=== PATIENT | female | born 1965 | race Caucasian/White ===

== ENCOUNTER 2016-09-15 18:31 | Emergency (ER) | payer SELFPAY ==
--- NOTE | 2016-09-15 19:17 | ED ORDER SUMMARY ---
..... Patient: THERESE AGUDELO OrderSheet [facility] VisitID: [id number] [place] [address] 51y, F Registration Date/Time: 09/15/2016 ORDER SHEET Weight: 72.5 kg (stated) Allergies: Codeine, NSAIDs, Tylenol GENERAL ORDERS: CBC w Diff Urgent (18:49 09/15/2016 JBoardley R.N. per protocol) (Ack 18:50 LMuller) (18:51 JBoardley R.N.) CMP Urgent (18:49 09/15/2016 JBoardley R.N. per protocol) (Ack 18:50 LMuller) (18:51 JBoardley R.N.) Amylase Urgent (18:49 09/15/2016 JBoardley R.N. per protocol) (Ack 18:50 LMuller) (18:51 JBoardley R.N.) Lipase Urgent (18:49 09/15/2016 JBoardley R.N. per protocol) (Ack 18:50 LMuller) (18:51 JBoardley R.N.) Pulse oximeter (18:50 09/15/2016 JBoardley R.N. per protocol) (18:50 JBoardley R.N.) UA-Culture if indicated Urgent (18:58 09/15/2016 HBivens A.R.N.P.) (Ack 19:03 LMuller) (Cancelled: Physician Order19:25 JBoardley R.N.) Urine Drug Screen Urgent (18:58 09/15/2016 HBivens A.R.N.P.) (Ack 19:03 LMuller) (Cancelled: Physician Order19:26 JBoardley R.N.) MEDICATION ORDERS: IV FLUIDS: Zofran IV 4 mg (NOW) (18:49 09/15/2016 JBoardley R.N. per protocol) (18:50 JBoardley R.N.) IV NS : initial bolus none -, then 1000 mL/hr for X1 (NOW); Routine (18:49 09/15/2016 JBoardley R.N. per protocol) (18:50 Kole Amaya) ORDER SHEET NOTES: [Electronically signed by Niko Garnett R.N. (19:27 09/15/2016)] [Electronically signed by Toyin Ross (19:46 09/15/2016)] [Electronically locked/signed by Niko Garnett R.N. (:27 09/15/2016)]
--- NOTE | 2016-09-15 19:17 | ED NURSING NOTES ---
Clinical Report - Nurses [facility] [address] [place] [address] 09/15/2016 18:31 [id number] Triage time 18:38 Sep 15 2016. Acuity: LEVEL 5. Chief Complaint: "FLU". 18:44 09/15/16. 18:44 09/15/16. SEPSIS SCREEN: Sepsis Screen. Negative (no infection suspected/documented). ODELL COMA SCORE: Odell Coma Scale: 15- eyes open spontaneously (4); best verbal response- oriented x 4 (5); best motor response- obeys commands (6). --18:44 Ruthy Robb R.N. 18:37 09/15/16. BP: 133/73 (regular adult cuff) taken on the right arm, while lying. HR: 113. RR: 20. O2 saturation: 98% on room air. Temp: 98.3 F. Pain level now: 05/17. --18:44 Ruthy Robb R.N. Acuity: LEVEL 3. --19:16 Niko Garnett R.N. Weight: 72.5 kg stated. Height/Length: 64 inches Per Patient. BMI: 27.5. --18:40 Ruthy Robb R.N. Medications Ibuprofen Oral 800 mg, 3x a day, last dose 2100. --18:39 Ruthy Robb R.N. Allergies Codeine. NSAIDs. Tylenol. --18:39 Ruthy Robb R.N. History Arrived by private vehicle. Historian: patient. Accompanied by family. 18:44 09/15/16. Symptoms still present (3 AM). ( Patient complains of nausea, vomiting, and diarrhea since 3AM this morning, she thinks she ate something bad). She has had vomiting and diarrhea. PAST MEDICAL HX: Last normal menstrual period- years 1 hasnt had menses for one year. Immunizations not up to date. SOCIAL HX: Current every day light tobacco smoker- less than 1/2 a pack per day. No alcohol use or drug use. No known contact with a sick individual. ABUSE ASSESSMENT: No report of abuse. FALL RISK ASSESSMENT: Fall risk assessment completed. No fall risk identified. NUTRITIONAL RISK ASSESSMENT: The nutritional risk assessment revealed no deficiencies. FUNCTIONAL ASSESSMENT: Functional assessment: no impairments noted. LEARNING NEEDS ASSESSMENT: The learning needs assessment revealed no barriers. SKIN INTEGRITY ASSESSMENT: Skin integrity risk assessment completed. No skin integrity risk identified. --18:44 Ruthy Robb R.N. PROBLEMS: Folliculitis. Lymphadenitis. Otitis Media. Dental Pain. Bartholin's Abscess. Labial cyst. Cellulitis. LNMP - Last Normal Menstrual Period. Abscess. Fx bilateral ankles. Infection in vaginal area. --18:40 Ruthy Robb R.N. ADDITIONAL SURGERIES: Appendectomy. . --18:40 Ruthy Robb R.N. Assessment 18:44 09/15/16. --18:44 Ruthy Robb R.N. Interventions 18:44 09/15/16. 18:44 09/15/16. ID band on patient. To treatment room. --18:44 Ruthy Robb R.N. PHYSICAL ASSESSMENT 18:45 09/15/16. Ambulatory to room. Patient gowned. GENERAL / NEURO / PSYCH: Oriented X 4. Appears in pain. RESPIRATORY: Respirations not labored. GI / : The patient has diarrhea. SKIN: Skin is warm. --18:45 Ruthy Robb R.N. NURSING PROGRESS NOTES 18:45 09/15/16. The plan of care for this patient has been created. Patient gowned. Head of bed elevated. Reassurance given. Two patient identifiers checked. Call light placed in reach. Side rails up x 1. Brakes of bed on. Brakes of chair on. Patient ready for evaluation- chart flagged and TIMBER FRAMER notified. --18:46 Ruthy Robb R.N. 18:50 09/15/2016 Site #1 started via IV in the left wrist with an 20g angiocath, with aseptic technique and good blood return; one attempt. Blood drawn: rainbow set. Labeled in the presence of the patient and sent to the lab. Saline lock flushed with 10 mL saline. --18:50 Niko Garnett R.N. 18:50 09/15/2016 Started bag #1 1000 mL IV Fluids IV NS (Saline); at 1000 mL/hr over 1 hour(s) via site #1. Allergies verified and confirmed 5 rights. IV patency established. IV site checked: no pain, redness, or swelling. IV flushed thoroughly pre- and post-medication administration. Completed per protocol. --18:50 Niko Garnett R.N. 18:50 09/15/2016 Zofran (Ondansetron HCl) IVP 4 mg given over 2 minute(s) via site #1. Allergies verified and confirmed 5 rights. IV patency established. IV site checked: no pain, redness, or swelling. IV flushed thoroughly pre- and post-medication administration. IVP given by RN. --18:50 Niko Garnett R.N. 18:51 09/15/16. HR: 114. O2 saturation: 97% on room air. --18:51 Niko Garnett R.N. 18:51 09/15/16. Pulse oximeter applied. --18:51 Niko Garnett R.N. 19:26 09/15/2016 Site #1 removed upon discharge. Catheter intact. --19:26 Niko Garnett R.N. 19:26 09/15/2016 IV Fluids IV NS Discontinued: bag #1 infused. Total amount infused: 1000 mL. IV patency established. IV site checked: no pain, redness, or swelling. IV flushed thoroughly. --19:26 Niko Garnett R.N. DISPOSITION / DISCHARGE 19:27 09/15/16. Condition at departure: improved. The goals identified in the patient's plan of care were met. No learning barriers present. Discharge instructions provided and reviewed with the patient. Reviewed warnings. Reviewed medication(s). Treatments reviewed. Patient verbalized understanding. Written instructions provided in Kyrgyz. The patient was discharged by the nurse practitioner. She was discharged home and accompanied by family. She left the Emergency Department ambulatory and via private vehicle. Family member driving. FALL RISK ASSESSMENT: Fall risk assessment completed. No fall risk identified. --19:27 Niko Garnett R.N. 19:26 09/15/16. BP: 128/72. HR: 99. RR: 14. O2 saturation: 100% on room air. Temp: 98.2 F (oral). --19:27 Niko Garnett R.N. 19:27 09/15/16. Departure time: 19:27. --19:27 Niko Garnett R.N. Locked/Released at 09/15/2016 19:27 by Niko Garnett R.N.
--- NOTE | 2016-09-15 19:17 | ED ORDER SUMMARY ---
..... Patient: THERESE AGUDELO OrderSheet [facility] VisitID: [id number] [place] [address] 51y, F Registration Date/Time: 09/15/2016 ORDER SHEET Weight: 72.5 kg (stated) Allergies: Codeine, NSAIDs, Tylenol GENERAL ORDERS: CBC w Diff Urgent (18:49 09/15/2016 JBoardley R.N. per protocol) (Ack 18:50 LMuller) (18:51 JBoardley R.N.) CMP Urgent (18:49 09/15/2016 JBoardley R.N. per protocol) (Ack 18:50 LMuller) (18:51 JBoardley R.N.) Amylase Urgent (18:49 09/15/2016 JBoardley R.N. per protocol) (Ack 18:50 LMuller) (18:51 JBoardley R.N.) Lipase Urgent (18:49 09/15/2016 JBoardley R.N. per protocol) (Ack 18:50 LMuller) (18:51 JBoardley R.N.) Pulse oximeter (18:50 09/15/2016 JBoardley R.N. per protocol) (18:50 JBoardley R.N.) UA-Culture if indicated Urgent (18:58 09/15/2016 HBivens A.R.N.P.) (Ack 19:03 LMuller) (Cancelled: Physician Order19:25 JBoardley R.N.) Urine Drug Screen Urgent (18:58 09/15/2016 HBivens A.R.N.P.) (Ack 19:03 LMuller) (Cancelled: Physician Order19:26 JBoardley R.N.) MEDICATION ORDERS: IV FLUIDS: Zofran IV 4 mg (NOW) (18:49 09/15/2016 JBoardley R.N. per protocol) (18:50 JBoardley R.N.) IV NS : initial bolus none -, then 1000 mL/hr for X1 (NOW); Routine (18:49 09/15/2016 JBoardley R.N. per protocol) (18:50 Kole Amaya) ORDER SHEET NOTES: [Electronically signed by Niko Garnett R.N. (19:27 09/15/2016)] [Electronically signed by Toyin Ross (19:46 09/15/2016)] [Electronically locked/signed by Niko Garnett R.N. (:27 09/15/2016)]
--- NOTE | 2016-09-15 19:17 | ED CLINICAL REPORT ---
Clinical Report - Physicians/Mid Levels [facility] [address] [place] [address] 09/15/2016 18:31 Patient: THERESE AGUDELO Time Seen: 18:54; initial patient contact, initial documentation, patient care assumed. Arrived- By private vehicle. Historian- patient. HISTORY OF PRESENT ILLNESS Chief Complaint: VOMITING and DIARRHEA. This started today and is still present. No recent travel. She has had nausea and moderate, crampy, colicky, constant abdominal pain. The pain is described as generalized. She has had severe vomiting. The vomiting has occurred numerous times and has been bilious. No feculent emesis, blood-tinged emesis, coffee-grounds emesis, frankly bloody emesis or unusually dark emesis. She has had severe diarrhea. This has occurred numerous times. It has been watery. No bloody, mucous containing or blood-tinged diarrhea. The diarrhea has not occurred once, twice or several times. She has not had occasional diarrhea or intermittent diarrhea. No black stools, bloody stools, constipation, flank pain or change in routine. Has not recently been camping or on antibiotics. Possible bad food exposure. She has had contact with a sick mother. Symptoms of the sick contact include nausea, vomiting and diarrhea. They have had similar symptoms. The illness is described as moderate. Similar symptoms previously: None. Recent medical care: Not recently seen/assessed. REVIEW OF SYSTEMS No fever, difficulty with urination, dark urine, chest pain or difficulty breathing. All systems otherwise negative, except as recorded above. PAST HISTORY See nurses notes. PROBLEMS: Folliculitis. Lymphadenitis. Otitis Media. Dental Pain. Bartholin's Abscess. Labial cyst. Cellulitis. LNMP - Last Normal Menstrual Period. Abscess. Fx bilateral ankles. Infection in vaginal area. --18:40 Ruthy Robb R.N. ADDITIONAL SURGERIES: Appendectomy. . --18:40 Ruthy Robb R.N. SOCIAL HISTORY Light tobacco smoker. No alcohol use or drug use. No recent travel. Is a local resident. FAMILY HISTORY Negative. ADDITIONAL NOTES The nursing notes have been reviewed with agreement regarding the chief complaint, HPI, ROS, PMH and patient medications and allergies. PHYSICAL EXAM Vital Signs: 09/15/2016 18:37 BP: 133/73. HR: 113. RR: 20. O2 saturation: 98%. Temp: 98.3 F. Pain level now: 10/10. Have been reviewed as normal and appear to be correct. Appearance: Alert. Oriented X3. No acute distress. Eyes: Pupils equal, round and reactive to light. Eyes normal inspection. Neck: Normal inspection. Neck supple. CVS: Normal heart rate and rhythm. Heart sounds normal. Pulses normal. Respiratory: No respiratory distress. Breath sounds normal. Abdomen: Soft and nontender. Abnormal bowel sounds: hyperactive and high pitched but sounds. No organomegaly. No mass. Skin: Skin warm and dry. Normal skin color. No rash. Normal skin turgor. Extremities: Extremities exhibit normal ROM. No lower extremity edema. Neuro: Oriented X 3. No motor deficit. No sensory deficit. LABS, X-RAYS, AND EKG Laboratory Tests: CBC w Diff: (MEENA: 09/15/2016 18:50) ( MsgRcvd 09/15/2016 18:59) Final results Test Result Flag Units (Reference) WHITE BLOOD COUNT 10.9 K/uL (4.5-11.5) RED BLOOD COUNT 5.58 H M/uL (4.00-5.20) HEMOGLOBIN 15.0 gm/dL (12.0-16.0) HEMATOCRIT 45.4 % (36.0-46.0) MEAN CELL VOLUME 81 fL (80-100) MEAN CORPUSCULAR HGB 27 pg (26-34) MEAN CORPUSCULAR HGB CONC 33 g/dL (31-37) RED CELL DISTRIBUTION WIDTH 14.5 % (11.6-14.8) PLATELET COUNT 334 K/uL (150-400) NEUTROPHIL % 93.9 H % (50-75) LYMPH % 3.4 L % (25-40) MONO % 2.2 L % (3-14) EOSINOPHIL % 0.5 % (0-4) BASOPHIL % 0 % (0-2) CMP: (MEENA: 09/15/2016 18:50) ( MsgRcvd 09/15/2016 19:12) Final results Test Result Flag Units (Reference) GLUCOSE 138 H mg/dL (70-110) BUN 10 mg/dL (7-18) CREATININE 0.9 mg/dL (0.6-1.3) Estimated GFR >60 mL/min Estimated GFR- >60 mL/min Note: Persistent reduction over 3 months in eGFR<60 mL/min/1.73 m2 defines CKD. Patients with eGFR values>=60 mL/min/1.73 m2 may also have CKD if evidence ofpersistent proteinuria. Additional information may be foundat www.kidney.org. SODIUM 137 mmol/L (136-145) POTASSIUM 3.7 mmol/L (3.5-5.1) CHLORIDE 101 mmol/L (98-107) CARBON DIOXIDE 23 mmol/L (21-32) CALCIUM 8.6 mg/dL (8.5-10.1) TOTAL PROTEIN 7.7 g/dL (6.4-8.2) ALBUMIN 3.8 g/dL (3.3-5.0) BILIRUBIN, TOTAL 0.2 mg/dL (0.0-1.0) ALKALINE PHOSPHATASE 104 U/L (46-116) AST (SGOT) 25 U/L (15-37) ALT (SGPT) 37 U/L (12-78) LIPASE 98 U/L (73-393) AMYLASE 38 U/L (25-115) . PROGRESS AND PROCEDURES Patient counseled in person regarding the patient's stable condition, test results and diagnosis. 19:17. Differential Diagnosis: I considered gastritis, peptic ulcer disease, gastroesophageal reflux disease, gastroparesis, Crohn's disease, ulcerative colitis, small bowel obstruction, gastric outlet obstruction, colonic obstruction, colon cancer, gastroenteritis, cholecystitis, pancreatitis, viral syndrome, enterocolitis, urinary tract infection, hepatitis, sepsis, drugs and as a possible cause of vomiting in this patient. This is a partial list of diagnoses considered. (viral illness, flu, food poisoning). Above considerations are based on history, physical exam and laboratory data. Differential diagnosis was discussed with patient. Disposition: Discharged home in good and improved condition (19:17). Condition: good and stable. CLINICAL IMPRESSION Acute noninfectious gastroenteritis. INSTRUCTIONS Take clear liquids only (frequent sips) for the next 24 hours until better. May continue medications with sips only. Advance diet as tolerated. Avoid. Warnings: GENERAL WARNINGS: Return or contact your physician immediately if your condition worsens or changes unexpectedly, if not improving as expected, or if other problems arise. SPECIFICALLY, return if you develop pain in the abdomen or pelvis, fever, the inability to keep fluids down, blood in vomitus, blood in diarrhea, fainting or lightheadedness. Prescription Medications: Zofran 4 mg: Take 1 orally every six hours as needed for nausea/vomiting. Dispense ten (10). No refills. Substitution is permissible. Bentyl 20 mg tablets: take 1 orally every 6 hours as needed. Dispense thirty (30). No refills. Substitution is permissible. Follow-up: Follow up with your doctor in about two days even if well. Call for an appointment. Summary of care provided to patient. Understanding of the discharge instructions verbalized by patient. (Electronically signed by Toyin Ross A.R.N.P. 09/15/2016 19:46)
--- NOTE | 2016-09-15 19:46 | ED MED RECONCILIATION SUMMARY ---
Patient: THERESE AGUDELO Medication Reconciliation Report [facility] VisitID: [id number] [address] [place] [address] 51y, F Registration Date/Time: 09/15/2016 Weight: 72.5 kg Height/Length: 64 in. BMI: 27.5 ALLERGIES: Codeine, NSAIDs, Tylenol The patient's Home Medications are listed below: THE FOLLOWING MEDICATIONS NEED TO BE RECONCILED: Ibuprofen Oral 800 mg, 3x a day, last dose: 2100 The source(s) of the original Home Medication information: Not obtained. The following Medications were given to the patient in the Emergency Department: IV NS IV Fluids bolus 0, then 1000 mL/hr, administered: 09/15/2016 6:50:00 PM Zofran [IVP] IVP 4 mg, administered: 09/15/2016 6:50:00 PM The following Medications were prescribed to the patient: Zofran 4 mg: Take 1 orally every six hours as needed for nausea/vomiting. Dispense ten (10). No refills. Substitution is permissible. -- Toyin Ross A.R.N.PAnuel Bentyl 20 mg tablets: take 1 orally every 6 hours as needed. Dispense thirty (30). No refills. Substitution is permissible. -- Toyin Ross A.R.N.P.
--- NOTE | 2016-09-15 19:46 | ED MAR SUMMARY ---
..... Medication Administration Record [facility] [address] [place] [address] Patient: THERESE AGUDELO Visit ID: [id number] 51y, F Weight: 72.5 kg Height/Length: 64 in BMI: 27.5 ALLERGIES: Codeine, NSAIDs, Tylenol Start 18:50 09/15/2016 Niko Garnett R.N., Stop 19:26 09/15/2016 Niko Garnett R.N. Medication Administered: IV NS (SALINE), Dose: IV Fluids over 1 hour(s), Rate: 1000 mL/hr, Dispensed: 1000 mL bag, Site: #1 left wrist. Medication Ordered: IV NS : initial bolus none -, then 1000 mL/hr for X1 (NOW); Routine. Given 18:50 09/15/2016 Niko Garnett R.N. Medication Administered: ZOFRAN [IVP] (ONDANSETRON HCL), Dose: 4 mg IVP over 2 minute(s), Site: #1 left wrist. Medication Ordered: Zofran IV 4 mg (NOW).
--- NOTE | 2016-09-15 19:46 | ED DISCHARGE INSTRUCTIONS ---
Patient: THERESE AGUDELO General Instructions [facility] VisitID: [id number] [place] [address] 51y, F Registration Date/Time: 09/15/2016 Acute noninfectious gastroenteritis. INSTRUCTIONS Take clear liquids only (frequent sips) for the next 24 hours until better. May continue medications with sips only. Advance diet as tolerated. Avoid. Warnings: GENERAL WARNINGS: Return or contact your physician immediately if your condition worsens or changes unexpectedly, if not improving as expected, or if other problems arise. SPECIFICALLY, return if you develop pain in the abdomen or pelvis, fever, the inability to keep fluids down, blood in vomitus, blood in diarrhea, fainting or lightheadedness. Prescription Medications: Zofran 4 mg: Take 1 orally every six hours as needed for nausea/vomiting. Dispense ten (10). No refills. Substitution is permissible. Bentyl 20 mg tablets: take 1 orally every 6 hours as needed. Dispense thirty (30). No refills. Substitution is permissible. Follow-up: Follow up with your doctor in about two days even if well. Call for an appointment. Summary of care provided to patient. Understanding of the discharge instructions verbalized by patient. ADDITIONAL INFORMATION Gastroenteritis [Non-Infectious, 6 Yr-Adult] Your symptoms today are coming from the intestinal tract. This may occur as a result of food sensitivity, inflammation of the GI tract, medicines, stress or other causes not related to infection. This may last from 1-3 days. Antibiotics are not effective, but simple home treatment will be helpful. Home Care: If symptoms are severe, rest at home for the next 24 hours. You may use acetaminophen (Tylenol) or ibuprofen (Motrin, Advil) to control fever, unless another medicine was prescribed. [NOTE: If you have chronic liver or kidney disease or ever had a stomach ulcer or GI bleeding, talk with your doctor before using these medicines.] (Aspirin should never be used in anyone under 18 years of age who is ill with a fever. It may cause severe liver damage.) Avoid tobacco and alcohol use, which may make your symptoms worse. If medicines for diarrhea or vomiting were prescribed, take only as directed. Once vomiting stops, then follow these guidelines: During The First 12-24 Hours follow the diet below: gingerale, mineral water (plain or flavored), decaffeinated tea and coffee. During The Next 24 Hours you may add the following to the above: DURING THE NEXT 24 HOURS Gradually resume a normal diet, as you feel better and your symptoms lessen. Follow Up with your doctor as advised if you are not improving over the next 2-3 days. If a stool (diarrhea) sample was taken, you may call in 2 days (or as directed) for the results. Get Prompt Medical Attention if any of the following occur: Increasing abdominal pain or constant lower right abdominal pain Continued vomiting (unable to keep liquids down) Frequent diarrhea (more than 5 times a day) Blood in vomit or stool (black or red color) Reduced oral intake Dark urine, reduced urine output Weakness, dizziness, fainting Drowsiness, confusion, stiff neck or seizure Fever of 100.4F (38C) or higher, or as directed by your healthcare provider New rash Clear Liquid Diet Clear liquids are any liquid that you can see through as well as those that are very easy to digest. This is used while the body is recovering from irritation or infection of the stomach or intestinal tract. It may also be used before special procedures or surgery. This diet is to be used no more than three days. You may include the following items. Adults Adults should drink a total of 23 quarts of liquid per day. It may be easier to drink small frequent servings rather than a few large ones. Liquids can include: Fruit juices.Strained orange juice or lemonade (no pulp), apple, grape and cranberry juice, clear fruit drinks, sports drinks Beverages.Sport drinks, sodas, mineral water (plain or flavored), tea, black coffee, liquid gelatin (add twice the recommended amount of water) Soups.Clear broth, consomm, bouillon Desserts.Plain gelatin, popsicles, fruit juice bars Children Over 2 years old The following liquids are acceptable for children over age 2: Fruit juices.Strained orange juice or lemonade (no pulp), apple, grape and cranberry juice, clear fruit drinks Beverages. Sports drinks, sodas, mineral water (plain or flavored), tea, liquid gelatin (add twice the recommended amount of water) Soups. Clear broth, consomm, bouillon Desserts. Plain gelatin, popsicles, fruit juice bars Children under 2 years old Oral rehydration fluids such are available at drug stores and most grocery stores without a prescription. Howell Diet A bland diet is used for patients with an upset stomach. It consists of foods that are mild and easy to digest. It is better to eat small frequent meals rather than three large meals a day. BEVERAGES OK: Fruit juices, non-caffeinated teas and coffee, non-carbonated baker AVOID: Carbonated beverage, caffeinated tea and coffee, all alcoholic beverages BREAD OK: Refined white, wheat or rye bread, ling or soda crackers, [place] toast, plain rolls, bagels AVOID: Whole-grain bread CEREAL OK: Refined cereals: cooked or ready to eat AVOID: Whole grain cereals and granola, or those containing bran, seeds or nuts DESSERTS OK: Peanut butter and all others except those to "avoid" AVOID: Chocolate, cocoa, coconut, popcorn, nuts, seeds, jam, marmalade FRUITS OK: Canned, cooked, frozen or fresh fruits without seeds or tough skin AVOID: Olives, skin and seeds of fruit MEATS OK: All fresh or preserved meat, fish and fowl AVOID: Any that are prepared with those spices to "avoid" CHEESE & EGGS OK: Eggs, cottage cheese, cream cheese, other cheeses AVOID: All cheeses made with those spices to "avoid" POTATOES & PASTA OK: Potato, rice, macaroni, noodles, spaghetti AVOID: None SOUPS OK: All soups without heavy seasoning AVOID: Soups made with those spices to "avoid" VEGETABLES OK: Canned, cooked, fresh or frozen mildly flavored vegetables without seeds, skins or coarse fiber AVOID: Vegetables prepared with those spices to "avoid"; skin and seeds of vegetables and those with coarse fiber SPICES OK: Salt, lemon and [place]opah juice, vinegar, all extracts, janeth, cinnamon, thyme, mace, allspice, paprika AVOID: [place] powder, cloves, pepper, seed spices, garlic, gravy pickles, highly seasoned salad dressings Clear Liquid Diet Clear liquids are any liquid that you can see through as well as those that are very easy to digest. This is used while the body is recovering from irritation or infection of the stomach or intestinal tract. It may also be used before special procedures or surgery. This diet is to be used no more than three days. You may include the following items. Adults Adults should drink a total of 23 quarts of liquid per day. It may be easier to drink small frequent servings rather than a few large ones. Liquids can include: Fruit juices.Strained orange juice or lemonade (no pulp), apple, grape and cranberry juice, clear fruit drinks, sports drinks Beverages.Sport drinks, sodas, mineral water (plain or flavored), tea, black coffee, liquid gelatin (add twice the recommended amount of water) Soups.Clear broth, consomm, bouillon Desserts.Plain gelatin, popsicles, fruit juice bars Children Over 2 years old The following liquids are acceptable for children over age 2: Fruit juices.Strained orange juice or lemonade (no pulp), apple, grape and cranberry juice, clear fruit drinks Beverages. Sports drinks, sodas, mineral water (plain or flavored), tea, liquid gelatin (add twice the recommended amount of water) Soups. Clear broth, consomm, bouillon Desserts. Plain gelatin, popsicles, fruit juice bars Children under 2 years old Oral rehydration fluids such are available at drug stores and most grocery stores without a prescription. Ondansetron Oral disintegrating tablet What is this medicine? ONDANSETRON (on LEE se ellen) is used to treat nausea and vomiting caused by chemotherapy. It is also used to prevent or treat nausea and vomiting after surgery. How should I use this medicine? These tablets are made to dissolve in the mouth. Do not try to push the tablet through the foil backing. With dry hands, peel away the foil backing and gently remove the tablet. Place the tablet in the mouth and allow it to dissolve, then swallow. While you may take these tablets with water, it is not necessary to do so. Talk to your superintendent transmission regarding the use of this medicine in children. Special care may be needed. What side effects may I notice from receiving this medicine? Side effects that you should report to your doctor or health care center manager as soon as possible: allergic reactions like skin rash, itching or hives, swelling of the face, lips, or tongue breathing problems dizziness fast or irregular heartbeat feeling faint or lightheaded, falls fever and chills swelling of the hands and feet tightness in the chest Side effects that usually do not require medical attention (report to your doctor or health care center manager if they continue or are bothersome): constipation or diarrhea headache What may interact with this medicine? Do not take this medicine with any of the following medications: -apomorphine -cisapride -dofetilide -dronedarone -pimozide -thioridazine -ziprasidone This medicine may also interact with the following medications: -carbamazepine -phenytoin -rifampicin -tramadol -other medicines that prolong the QT interval (cause an abnormal heart rhythm) What if I miss a dose? If you miss a dose, take it as soon as you can. If it is almost time for your next dose, take only that dose. Do not take double or extra doses. Where should I keep my medicine? Keep out of the reach of children. Store between 2 and 30 degrees C (36 and 86 degrees F). Throw away any unused medicine after the expiration date. What should I tell my health care provider before I take this medicine? They need to know if you have any of these conditions: heart disease history of irregular heartbeat liver disease low levels of magnesium or potassium in the blood an unusual or allergic reaction to ondansetron, granisetron, other medicines, foods, dyes, or preservatives or trying to get breast-feeding What should I watch for while using this medicine? Check with your doctor or health care center manager as soon as you can if you have any sign of an allergic reaction. Dicyclomine Hydrochloride Oral tablet What is this medicine? DICYCLOMINE (dye STEPHANY dawson) is used to treat bowel problems including irritable bowel syndrome. How should I use this medicine? Take this medicine by mouth with a glass of water. Follow the directions on the prescription label. It is best to take this medicine on an empty stomach, 30 minutes to 1 hour before meals. Take your medicine at regular intervals. Do not take your medicine more often than directed. Talk to your superintendent transmission regarding the use of this medicine in children. Special care may be needed. While this drug may be prescribed for children as young as 6 months of age for selected conditions, precautions do apply. Patients over 65 years old may have a stronger reaction and need a smaller dose. What side effects may I notice from receiving this medicine? Side effects that you should report to your doctor or health care center manager as soon as possible: agitation, nervousness, confusion difficulty swallowing dizziness, drowsiness fast or slow heartbeat hallucinations pain or difficulty passing urine Side effects that usually do not require medical attention (report to your doctor or health care center manager if they continue or are bothersome): constipation headache nausea or vomiting sexual difficulty What may interact with this medicine? amantadine antacids benztropine digoxin disopyramide medicines for allergies, colds and breathing difficulties medicines for alzheimer's disease medicines for anxiety or sleeping problems medicines for depression or psychotic disturbances medicines for diarrhea medicines for pain metoclopramide tegaserod What if I miss a dose? If you miss a dose, take it as soon as you can. If it is almost time for your next dose, take only that dose. Do not take double or extra doses. Where should I keep my medicine? Keep out of the reach of children. Store at room temperature below 30 degrees C (86 degrees F). Protect from light. Throw away any unused medicine after the expiration date. What should I tell my health care provider before I take this medicine? They need to know if you have any of these conditions: difficulty passing urine esophagus problems or heartburn glaucoma heart disease, or previous heart attack myasthenia gravis prostate trouble stomach infection, or obstruction ulcerative colitis an unusual or allergic reaction to dicyclomine, other medicines, foods, dyes, or preservatives or trying to get breast-feeding What should I watch for while using this medicine? You may get drowsy, dizzy, or have blurred vision. Do not drive, use machinery, or do anything that needs mental alertness until you know how this medicine affects you. To reduce the risk of dizzy or fainting spells, do not sit or stand up quickly, especially if you are an older patient. Alcohol can make you more drowsy, avoid alcoholic drinks. Stay out of bright light and wear sunglasses if this medicine makes your eyes more sensitive to light. Avoid extreme heat (hot tubs, saunas). This medicine can cause you to sweat less than normal. Your body temperature could increase to dangerous levels, which may lead to heat stroke. Antacids can stop this medicine from working. If you get an upset stomach and want to take an antacid, make sure there is an interval of at least 1 to 2 hours before or after you take this medicine. Your mouth may get dry. Chewing sugarless gum or sucking hard candy, and drinking plenty of water may help. Contact your doctor if the problem does not go away or is severe. You have been given the following additional information: Gastroenteritis, Non-Infectious (Child) (Adult) Diet, Clear Liquid Diet, Howell (Adult) Diet, Clear Liquid Ondansetron Oral disintegrating tablet Dicyclomine Hydrochloride Oral tablet (Electronically signed by Toyin Ross A.R.N.P. 09/15/2016 19:46)
--- NOTE | 2016-09-15 19:46 | ED MAR SUMMARY ---
..... Medication Administration Record [facility] [address] [place] [address] Patient: THERESE AGUDELO Visit ID: [id number] 51y, F Weight: 72.5 kg Height/Length: 64 in BMI: 27.5 ALLERGIES: Codeine, NSAIDs, Tylenol Start 18:50 09/15/2016 Niko Garnett R.N., Stop 19:26 09/15/2016 Niko Garnett R.N. Medication Administered: IV NS (SALINE), Dose: IV Fluids over 1 hour(s), Rate: 1000 mL/hr, Dispensed: 1000 mL bag, Site: #1 left wrist. Medication Ordered: IV NS : initial bolus none -, then 1000 mL/hr for X1 (NOW); Routine. Given 18:50 09/15/2016 Niko Garnett R.N. Medication Administered: ZOFRAN [IVP] (ONDANSETRON HCL), Dose: 4 mg IVP over 2 minute(s), Site: #1 left wrist. Medication Ordered: Zofran IV 4 mg (NOW).
--- NOTE | 2016-09-15 19:46 | ED MED RECONCILIATION SUMMARY ---
Patient: THERESE AGUDELO Medication Reconciliation Report [facility] VisitID: [id number] [address] [place] [address] 51y, F Registration Date/Time: 09/15/2016 Weight: 72.5 kg Height/Length: 64 in. BMI: 27.5 ALLERGIES: Codeine, NSAIDs, Tylenol The patient's Home Medications are listed below: THE FOLLOWING MEDICATIONS NEED TO BE RECONCILED: Ibuprofen Oral 800 mg, 3x a day, last dose: 2100 The source(s) of the original Home Medication information: Not obtained. The following Medications were given to the patient in the Emergency Department: IV NS IV Fluids bolus 0, then 1000 mL/hr, administered: 09/15/2016 6:50:00 PM Zofran [IVP] IVP 4 mg, administered: 09/15/2016 6:50:00 PM The following Medications were prescribed to the patient: Zofran 4 mg: Take 1 orally every six hours as needed for nausea/vomiting. Dispense ten (10). No refills. Substitution is permissible. -- Toyin Ross A.R.N.PAnuel Bentyl 20 mg tablets: take 1 orally every 6 hours as needed. Dispense thirty (30). No refills. Substitution is permissible. -- Toyin Ross A.R.N.P.
== END 2016-09-15 19:27 | disposition home or self-care (01) ==
LOC: ED SRH 18:31
DX: K52.9 Noninfective gastroenteritis and colitis, unspecified (principal); F17.200 Nicotine dependence, unspecified, uncomplicated; Z88.5 Allergy status to narcotic agent; Z88.6 Allergy status to analgesic agent; Z88.8 Allergy status to other drugs, medicaments and biological substances
CPT/HCPCS: 90100; 92235; 92530; 95059